=== PATIENT | female | born 1950 | race Caucasian/White ===

== ENCOUNTER 2018-04-22 06:04 | Day surgery (SDC) | payer MEDICARE ==
[~2018-04-22 06:04] MED LIST: Acetaminophen TAB* 325 MG PO ONE; Buffered Lidocaine 0.9% SYRIN* 5 ML/SYR SYRINGE INTRADERM ONE; Gabapentin CAP(*) 300 MG PO ONE; celeCOXIB CAP* 100 MG PO ONE
[2018-04-22] MEDS ORDERED: Gabapentin CAP(*) 300 MG ONE (06:12)
[2018-04-22] MEDS ORDERED: celeCOXIB CAP* 100 MG ONE (06:12)
[2018-04-22] MEDS ORDERED: ceFAZolin 2 GM in NS PREMIX(*) 2 GM/100 ML BAG IVPB ONE (06:13)
[2018-04-22] MEDS ORDERED: Acetaminophen TAB* 325 MG ONE (06:13)
[2018-04-22] MEDS ORDERED: fentaNYL* 50 MCG/ML 2 ML VIAL (100 MCG VIAL) ONE ×2 (07:03→09:42)
[2018-04-22] MEDS ORDERED: Midazolam* 1 MG/ML 2 ML VIAL (2 MG) ONE (07:03)
[2018-04-22] MEDS ORDERED: Lidocaine 2% PF * 5 ML VIAL ONE (08:12)
[2018-04-22] MEDS ORDERED: Scopolamine 1.5 mg* PATCH TRANSDERM PRN (08:24)
[2018-04-22] MEDS ORDERED: Naloxone* 0.4 MG/ML 1 ML VIAL IV PRN (08:24)
[2018-04-22] MEDS ORDERED: DiMENhydriNATE IV* 50 MG/ML VIAL IV PUSH PRN (08:24)
[2018-04-22] MEDS ORDERED: PROCHLORPERAZINE INJ 5 MG/ML 2 ML VIAL IV PRN (08:24)
[2018-04-22] MEDS ORDERED: Ondansetron INJ* 2 MG/ML VIAL IV PRN (08:24)
[2018-04-22] MEDS ORDERED: HYDROmorphone INJ1* 1 MG/ML SYRINGE IV PRN (08:24)
[2018-04-22] MEDS ORDERED: fentaNYL* 50 MCG/ML 2 ML VIAL (100 MCG VIAL) IV PRN (08:24)
[2018-04-22] MEDS ORDERED: HYDROcodone/ACETAMIN 5-325 MG* 1 TAB PO PRN ×2 (08:24)
[2018-04-22] MEDS ORDERED: Acetaminophen TAB* 325 MG PO PRN (08:24)
[2018-04-22] MEDS ORDERED: Propofol* 10 MG/ML 20 ML BTL IV PUSH ONE ×2 (08:46→09:50)
[2018-04-22] MEDS ORDERED: Famotidine IV* 10 MG/ML 2 ML (20 mg) ONE (08:46)
[2018-04-22] MEDS ORDERED: Ondansetron INJ* 2 MG/ML VIAL ONE (08:46)
[2018-04-22] MEDS ORDERED: Dexamethasone IV* 4 MG/ML 1 ML (4 MG) ONE (08:46)
[2018-04-22] MEDS ORDERED: Bupivacaine-MPF SPINAL* 7.5 MG/ML - 2ML AMP ONE (09:48)
[2018-04-22] MEDS ORDERED: diPHENhydraMINE IV* 50 MG/ML 1 ml VIAL (BENADRYL) ONE (09:48)
[2018-04-22] MEDS ORDERED: ROPIVACAINE 5 MG/ML 30 ML BTL (0.5%) ONE (09:48)
[2018-04-22] MEDS ORDERED: Bupivacaine 0.5% SDV PF* 30ML VIAL ONE (09:53)
[2018-04-22 12:35] VITALS: BP 152/87
--- NOTE | 2018-04-22 18:34 | RAD ---
INDICATION: Left ankle surgery. COMPARISON: There are no relevant prior studies available for comparison. TECHNIQUE: 75.8 seconds of intermittent fluoroscopic guidance were provided and 2 spot films of the left ankle were obtained in the operating room. FINDINGS: There are surgical instruments present. There is a left ankle arthroplasty. Note is made of prostheses in the distal tibia and talus. IMPRESSION: INTRAOPERATIVE CONTROL FILMS. CPT II Codes: G9500
--- NOTE | 2018-04-23 11:03 | OP ---
DATE OF OPERATION: 04/22/18 - [facility] DATE OF : 50 ATTENDING SURGEON: Narayan Ramirez MD CUSTOM APPLICATOR: Kerri Benitez PA-C PRE-OP DIAGNOSIS: Left tibiotalar arthrosis. POST-OP DIAGNOSIS: Left tibiotalar arthrosis. OPERATIVE PROCEDURE: Left tibiotalar arthroplasty with the Infinity tibia, size 2 talus and 8 mm spacer. DESCRIPTION OF PROCEDURE: The patient was taken to the operating room where a longitudinal incision was made over the tibiotalar joint. We went to the retinaculum over the extensor hallucis tendon and then raised mediolateral flaps trying to avoid any other neurovascular bundles. We then placed the medial gutter alignment jig and the tibial alignment jig fastening this with are 2 pins in the distal midline anteriorly. We sized the tibial cutting block to a size 2 and aligned this in varus-valgus plane as well as using the anteroposterior slope guide. We fixed this with pins around the distal tibia. We brought the talus up to a neutral position, pinning this as well and then we cut the medial, lateral and proximal tibial cuts as well as the flat talar dome cut. We then placed the talar dome cutting jig fixing this with appropriate pins, we cut the posterior chamfer cut and routed out the anterior talar chamfer. We then checked with it the size 2 talus, size 2 tibia and an 8 mm poly and felt that the trial was in good position on AP and lateral views. We then reamed out the tibial peg holes as well as the talar peg holes. Both implants were then impacted with the appropriate driving jig. The 8 mm poly placed in its slot as well and then finished reduction and alignment verified in AP and lateral x-rays. We closed the anterior retinaculum with 0 Vicryl sutures, 2-0 Vicryl subcu, tasha for the skin and a compression dressing applied. [id number]/[facility] #: [id number] [facility]
[2018-04-25] MEDS ORDERED: Scopolamine PATCH Remove* 1 NOTE MISC PATCH OFF ONE (08:25)
== END 2018-04-22 12:42 | disposition home or self-care (01) ==
LOC: OR 06:04
PROVIDERS: ATTEND Orthopaedic Surgery
DX: M19.172 Post-traumatic osteoarthritis, left ankle and foot (principal); Z87.891 Personal history of nicotine dependence; E78.5 Hyperlipidemia, unspecified; E66.01 Morbid (severe) obesity due to excess calories; Z68.39 Body mass index [BMI] 39.0-39.9, adult; F41.9 Anxiety disorder, unspecified; G89.18 Other acute postprocedural pain
CPT/HCPCS: 76000; A9270-GY; C1713; C1776; J0690; J1100; J1200; J2250; J2405; J2704; J2795; J3010